=== PATIENT | male | born 1955 | race Caucasian/White ===

== ENCOUNTER → 2021-07-31 | Outpatient (REF) ==
[2021-07-31 12:33] LABS: POTASSIUM 3.2 mmol/L (3.5-5.1)
[2021-07-31 12:34] LABS: CALCIUM 11.6 mg/dL (8.3-10.5)
[2021-07-31 12:40] LABS: MAGNESIUM 1.54 mg/dL (1.60-2.60)
== END ==
LOC: LAB 09:58
PROVIDERS: Internal Medicine
DX: Z01.89 Encounter for other specified special examinations (principal)